=== PATIENT | male | born 1955 | race Caucasian/White ===

== ENCOUNTER 2016-06-28 14:37 | Emergency (ER) | payer MEDICARE ==
--- NOTE | ~2016-06-28 | EKG ---
PATIENT: JANIE SLADE UNIT #: [id number] Ventricular Rate: 62 BPM Atrial Rate: 62 BPM P-R Interval: 156 ms QRS Duration: 78 ms Q-T Interval: 420 ms QTC Calculation(Bezet): 426 ms P Junction: 76 degrees Calculated R Junction: 8 degrees Calculated T Junction: 38 degrees Diagnosis Line: Normal sinus rhythm Diagnosis Line: Poor R wave progression questionable lead position Diagnosis Line: or body habitus Diagnosis Line: Borderline ECG Diagnosis Line: When compared with ECG of 21-JUL-2015 18:04, Diagnosis Line: No significant change was found Diagnosis Line: Confirmed by JORGE COWART MD ([id number]) on Diagnosis Line: 06/28/2016 9:38:06 PM INTERPRETING : JOVAN
--- NOTE | ~2016-06-28 | CR72 ---
[facility] A Service of [facility] RADIOLOGY TEXT RESULTS PATIENT: JANIE SLADE JR LOCATION: [facility] : 55 UNIT #: [id number] AGE: [address]: Tonya Beckman MD SEX: M ORDER DR: [id number] [facility] [address] [place], [place] [address] [id number] MR#: [id number] Acc #: [id number] NAME: JANIE SLADE : 1955 SEX: M STUDY DATE/TIME: 06/28/2016 14:29 UNIT: [facility] ROOM: STUDY DESCRIPTION: CR Chest Single View Portable Attending Physician: Tonya Beckman M.D. Ordering Physician: Tonya Beckman M.D. Primary Care Physician: No Primary Care Physician MEDICAL IMAGING REPORT This report is preliminary unless electronic signature is present EXAM Portable chest, 06/28. INDICATION Shortness of air, chest pain, and cough that started yesterday. History of smoking. FINDINGS AP portable views of the chest compared with 07/21/2015. Lungs remain emphysematous but clear. Cardiac and mediastinal contours are normal. No pneumothorax is seen. IMPRESSION Emphysema. No active disease. Dictated by... Daniel Arguello Jr., M.D. THIS IS AN ELECTRONICALLY VERIFIED REPORT Daniel Arguello Jr., M.D. at 06/29/2016 4:46 PM LINDSAY/krzysztof TD: 06/28/2016 16:02 JOB #: [id number] MEDICAL IMAGING REPORT Page 1 of 1 COPY
[2016-06-28 14:16] LABS: BASOPHIL% 0.5 % (0-2.5); EOSINOPHIL# 0.1 X10e3 (0-0.7); EOSINOPHIL% 1.9 % (0.0-7.0); HEMATOCRIT 46.2 % (38.0-50.0); HEMOGLOBIN 15.3 gm/dL (13.0-16.0); LYMPHOCYTE# 2.2 X10e3 (1.0-3.5); LYMPHOCYTE% 28.5 % (17.0-45.0); MEAN CELL VOLUME 92.2 FL (83-96); MEAN CORPUSCULAR HEMOGLOBIN 30.6 PG (28-34); MEAN CORPUSCULAR HGB CONC 33.2 g/dL (30-36); MEAN PLATELET VOLUME 9.3 FL (6.5-11.5); MONOCYTE# 0.4 X10e3 (0-1.0); MONOCYTE% 5.4 % (3.0-12.0); NEUTROPHIL# 4.9 X10e3 (1.5-7.1); NEUTROPHIL% 63.7 % (40-75); PLATELET COUNT 166 X10e3 (140-420); RED BLOOD COUNT 5.01 X10e (3.90-5.60); RED CELL DISTRIBUTION WIDTH 14.2 % (11.0-15.5); WHITE BLOOD COUNT 7.7 X10e3 (4.0-10.5)
[2016-06-28 14:19] LABS: DIFF IND NO
[2016-06-28 14:34] LABS: PARTIAL THROMBOPLASTIN TIME 27.3 SECONDS (23.5-31.3); PROTHROMBIN TIME (PATIENT) 10.6 SECONDS (9.6-11.5)
[2016-06-28 14:37] LABS: ALBUMIN SERUM 4.2 g/dL (3.5-5.0); BILIRUBIN, DIRECT 0.1 mg/dL (0.0-0.2); BILIRUBIN,INDIRECT 1.2 mg/dL (0.0-0.9); BILIRUBIN,TOTAL 1.3 mg/dL (0.2-2.0); BUN/CREATININE RATIO 21.11; CALCIUM SERUM 9.3 mg/dL (8.4-10.2); CREATININE SERUM 0.9 mg/dL (0.6-1.4); GLOM FILT RATE Estimated 91.9 mL/min (>60); PROTEIN TOTAL SERUM 7.3 g/dL (6.0-8.3)
[~2016-06-28 14:37] MED LIST: ACETAMINOPHEN PR; ALBUTEROL17 GM; ALBUTEROL17 GM INH; AMLODIPINE BES2.5 MG PO; ASPIRINEC PO; BENZONATATE PO; BUSPAR PO; BUSPIRONE HCL10 M1 PO; CELEXA20 MG PO; COMBIVENT; COMBIVENT RESPIM4 GM INH; COMBIVENT U/D3 M2 INH; COMBIVENT14.7 GM INH; DESYREL150 M1 PO; DOXYCYCLINE HY100 M1 PO; FLEXERIL10 MG PO; LISINOPRIL10 MG PO; LORTAB 7.5-5001 TAB PO; MEDROL DOSEPAK4 MG PO; MEDROL4 MG/DOSE- PO; MOBIC15 MG PO; MULTI VITAMIN1 EACH PO; NORVASC2.5 MG PO; OMEPRAZOLE20 M1 PO; OMEPRAZOLE20 M2 PO; OMEPRAZOLE40 M1 PO; PERCOCET; PERCOCET 10/3251 TAB PO; PERCOCET10 PO; PERCOCET7.5 PO; PHENERGAN; PHENERGAN25 MG PO; PREDNISONE PO; PRINIVIL10 MG PO; PRO AIR HFA; PROZAC; ROBITUSSIN A-C S5 ML PO; SIMVASTATIN20 MG PO; SIMVASTATIN40 MG PO; SYMBICORT INH; TYLOX 5/500 CAP1 CAP PO; ZITHROMAX PO; ZOCOR PO
[2016-06-28 15:09] LABS: POC - CKMB 1.5 ng/mL (0.0-7.9); POC - TROPONIN <0.05 ng/mL (<=0.05)
[2016-06-28 16:44] LABS: POC - CKMB 1.4 ng/mL (0.0-7.9); POC - TROPONIN <0.05 ng/mL (<=0.05)
== END 2016-06-28 17:25 | disposition home or self-care (01) ==
LOC: CED 14:37
PROVIDERS: Student in an Organized Health Care Education/Training Program
DX: J44.1 Chronic obstructive pulmonary disease with (acute) exacerbation (principal); F41.9 Anxiety disorder, unspecified; I10 Essential (primary) hypertension; F17.200 Nicotine dependence, unspecified, uncomplicated; Z79.899 Other long term (current) drug therapy
CPT/HCPCS: 36415; 71010; 80048; 80076; 82553; 83880; 84484; 85025; 85610; 85730; 93005; 94640; 96361; 96365; 96374; 96375; 99284; J2405; J2930; J3475